=== PATIENT | male | born 1980 | race Caucasian/White ===

== ENCOUNTER 2018-02-10 10:33 | Emergency (ER) | payer SELFPAY ==
[~2018-02-10] VITALS: Ht 182.9 cm; Wt 83.5 kg
[~2018-02-10 10:33] MED LIST: FLAGYL500 MG PO; PERCOCET 5/31 TABLET PO; ZOFRAN4 MG PO
[2018-02-10 11:24] LABS: HEMATOCRIT 43.7 % (38.0-50.0); HEMOGLOBIN 15.7 G/DL (12.5-16.6); MCH 30.5 PG (29.0-34.0); MCHC 35.9 G/DL (30.0-36.0); PLATELET COUNT 261 K/uL (156-360); RBC DIS.WIDTH-CV 11.9 % (11.8-14.6); RBC DIS.WIDTH-SD 36.5 % (39-53); RED BLOOD COUNT 5.14 M/uL (4.00-5.50); WHITE BLOOD COUNT 7.8 K/uL (4.1-10.2)
[2018-02-10 11:39] LABS: ALBUMIN 4.3 g/dL (3.2-4.8); CHLORIDE 106 mEq/L (99-109); SODIUM 142 mEq/L (136-147)
[2018-02-10 11:41] LABS: GLUCOSE 98 mg/dL (70-99)
[2018-02-10 11:43] LABS: TOTAL BILIRUBIN 0.3 mg/dL (0.0-1.0)
[2018-02-10 11:44] LABS: ALKALINE PHOSPHATASE 59 IU/L (3-129)
[2018-02-10 11:45] LABS: CREATININE 0.9 mg/dL (0.6-1.3); GFR ESTIMATE (CALCULATED) > 59 mL/min/ (58.99-99999)
[2018-02-10 11:46] LABS: AST (GOT) 19 IU/L (2-34); UREA NITROGEN (BUN) 24 mg/dL (9-23)
[2018-02-10 11:48] LABS: ALT (GPT) 29 IU/L (3-49); LIPASE 208 U/L (1.0-51.0)
[2018-02-10 13:30] LABS: APPEARANCE SL.HAZY ((CLEAR)); BILIRUBIN NEGATIVE; BLOOD NEGATIVE; COLOR YELLOW ((YELLOW)); GLUCOSE (STRIP) NEGATIVE; KETONES NEGATIVE; LEUKOCYTES NEGATIVE; NITRITE NEGATIVE; PROTEIN (STRIP) 30; SPECIFIC GRAVITY 1.028 (1.000-1.030)
[2018-02-10 13:40] LABS: BACTERIA NONE SEEN /HPF; CALCIUM OXALATE CRYSTALS 1+ /HPF; EPITHELIAL CELLS NONE SEEN /HPF; MUCUS 2+ /LPF; RED BLOOD CELLS 0-5 /HPF (0-5); UCUL ADDED? NO; WHITE BLOOD CELLS 0-5 /HPF (0-5)
[2018-02-10] MEDS ORDERED: ZOFRAN ODT4 MG PO (16:06)
[2018-02-10 17:15] VITALS: BP 108/65
== END 2018-02-10 17:15 | disposition home or self-care (01) ==
LOC: RME 10:33 → EME 10:33 → RME 17:15
DX: R10.30 Lower abdominal pain, unspecified (principal)
CPT/HCPCS: 74177; 80053; 81003; 83690; 85027; 99281; 99285; J2270; J2405; J7030